=== PATIENT | male | born 1985 | race Caucasian/White ===

== ENCOUNTER 2018-04-29 07:29 | Emergency (ER) | payer OTHER ==
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
--- NOTE | 2018-04-29 09:29 | RADIOLOGY REPORT (SQ) ---
EXAM DESCRIPTION: HAND RIGHT 3 VIEWS COMPLETED DATE/TIME: 04/29/2018 9:18 am REASON FOR STUDY: scaphoid pain COMPARISON: None. NUMBER OF VIEWS: Four views right hand including scaphoid view. LIMITATIONS: None. FINDINGS: There is no acute or significant bone, joint or soft tissue abnormality. OTHER: No other significant finding. IMPRESSION: NORMAL STUDY. TECHNICAL DOCUMENTATION: JOB ID: [id number] Reading location - IP[facility]workstation name: [email or web address]
[2018-04-29 09:54] VITALS: BP 110/62
== END 2018-04-29 09:54 | disposition home or self-care (01) ==
LOC: ER 07:29
DX: S63.641A Sprain of metacarpophalangeal joint of right thumb, initial encounter (principal); M79.641 Pain in right hand; V49.9XXA Car occupant (driver) (passenger) injured in unspecified traffic accident, initial encounter; W22.11XA Striking against or struck by driver side automobile airbag, initial encounter
CPT/HCPCS: 99283

== ENCOUNTER 2018-10-05 10:42 | Day surgery (SDC) | payer OTHER ==
[~2018-10-05 10:42] MED LIST: PROPOFOL INJ 200 MG/20 ML VIAL IV ONE
[2018-10-05] MEDS ORDERED: PROPOFOL INJ 200 MG/20 ML VIAL IV ONE (11:26)
[2018-10-05 12:14] VITALS: BP 118/57
--- NOTE | 2018-10-05 12:23 | Operative Report ---
Operative Report DATE OF SURGERY: 10/05/18 Operative Report: The risks, benefits and alternatives of the procedure including the risk of bleeding, perforation requiring surgery have been explained to the patient in detail and informed consent has been obtained. Patient is taken back to the endoscopy suite and placed in a left, lateral decubital position. Timeout was called. Propofol medication is administered. A rectal examination is done which did not reveal any masses, tears or fissures. An Olympus videoscope was introduced into the patient's rectum. The scope was then carefully advanced all the way to the cecum. The cecum was identified by the usual anatomical landmarks including the ileocecal valve as well as the appendiceal office. Photodocumentation is obtained. The scope was then sequentially pulled back via the various segments of the colon including the ascending colon, hepatic flexure, transverse colon, splenic flexure, descending colon and finally into the rectosigmoid portions of the colon. Retroflexion maneuver is performed. PREOPERATIVE DIAGNOSIS: Rectal discomfort POSTOPERATIVE DIAGNOSIS: Internal hemorrhoids. Random biopsies taken at the area of the terminal ileum to rule out Crohn's disease OPERATION: Colonoscopy with biopsy SURGEON: VASYL VENTURA ANESTHESIA: LMAC TISSUE REMOVED OR ALTERED: As noted above. COMPLICATIONS: None. ESTIMATED BLOOD LOSS: None. INTRAOPERATIVE FINDINGS: As noted above. PROCEDURE: Patient tolerated the procedure well. No immediate postprocedure complications are noted. Patient is discharged in good condition. Discharge date 10/05/2018. Discharge diet: Regular. Discharge activity: Regular. 2 to 3-week follow-up to discuss findings. Patient is instructed to call the office or proceed to the emergency room should there be any further problems or questions. Need to wait on the pathology.
== END 2018-10-05 12:14 | disposition home or self-care (01) ==
LOC: END 10:42
PROVIDERS: ATTEND Internal Medicine Gastroenterology
DX: K62.89 Other specified diseases of anus and rectum (principal); K64.8 Other hemorrhoids; L29.0 Pruritus ani
CPT/HCPCS: 45380; 88305 ×2; 00811; J2704; 811